=== PATIENT | female | born 1975 | race Caucasian/White ===

== ENCOUNTER 2017-10-04 01:45 | Emergency (ER) | payer BC ==
[~2017-10-04] VITALS: Ht 167.6 cm; Wt 65.0 kg
[2017-10-04 02:19] VITALS: BP 99/65
== END 2017-10-04 02:54 | disposition left against medical advice (07) ==
LOC: ER 02:43
DX: Z53.21 Procedure and treatment not carried out due to patient leaving prior to being seen by health care provider (principal)